=== PATIENT | female | born 1950 | race Caucasian/White ===

== ENCOUNTER 2018-02-27 14:25 | Outpatient (CLI) | payer MEDICARE, BC | END 2018-02-27 14:26 | disposition home or self-care (01) | LOC: BICMAMMO 14:25 | PROVIDERS: ATTEND Internal Medicine | DX: Z12.31 Encounter for screening mammogram for malignant neoplasm of breast (principal); R92.1 Mammographic calcification found on diagnostic imaging of breast | CPT/HCPCS: 77063; 77067 ==

== ENCOUNTER 2019-03-04 08:31 | Outpatient (CLI) | payer MEDICARE, BC ==
--- NOTE | 2019-03-04 09:11 | MMO ---
Bilateral MAMMO Bilat Screen [facility]. CLINICAL HISTORY: Patient is 69 years old and is seen for screening. The patient has no family history of breast cancer. The patient has no personal history of cancer. VIEWS: The views performed were: bilateral craniocaudal with tomosynthesis and bilateral mediolateral oblique with tomosynthesis. FILMS COMPARED: The present examination has been compared to prior imaging studies performed at [facility] on 02/10/2016, 02/15/2017 and 02/27/2018, and at [facility] on 09/10/2014. MAMMOGRAM FINDINGS: The breasts are extremely dense, which may lower the sensitivity of mammography. There are stable benign appearing calcifications seen in both breasts. There are no suspicious masses, suspicious calcifications, or new areas of architectural distortion. IMPRESSION: THERE IS NO MAMMOGRAPHIC EVIDENCE OF MALIGNANCY. A ROUTINE FOLLOW-UP MAMMOGRAM IN 1 YEAR IS RECOMMENDED. THE RESULTS OF THIS EXAM WERE SENT TO THE PATIENT. ACR BI-RADS Category 2 - Benign finding MAMMOGRAPHY NOTE: 1. A negative mammogram report should not delay a biopsy if a dominant of clinically suspicious mass is present. 2. Approximately 10% to 15% of breast cancers are not detected by mammography. 3. Adenosis and dense breasts may obscure an underlying neoplasm. Reported by: SERGIO LEON MD Electonically Signed: [id number]
--- NOTE | 2019-03-04 09:24 | BD ---
DEXA BONE DENSITOMETRY: (Dual energy x-ray absorptiometry) DATE: 03/04/2019 HISTORY: 69-year old white female for age-related, post-menopausal, osteoporosis screening. weight: 112 lbs height: 64 in. age of menopause: 57 COMPARISON: None available. FINDINGS: The bone mineral density (BMD) is given in grams per square centimeter (g/cm2): LUMBAR SPINE: BMD (g/cm^2) T score Z score L1: 0.859 -1.2 0.6 L2: 0.935 -0.8 1.2 L3: 0.964 -1.1 1.0 L4: 0.915 -1.3 0.8 Total: 0.920 -1.2 0.9 HIP: BMD (g/cm^2) T score Z score Femoral neck: 0.549 -2.7 -1.0 Total: 0.739 -1.7 -0.2 IMPRESSION: 1.) The mean bone mineral density of the lumbar spine is osteopenic. Fracture risk is increased. 2) The bone mineral density of the femoral neck is osteoporotic. Fracture risk is high.
== END 2019-03-04 08:32 | disposition home or self-care (01) ==
LOC: BICMAMMO 08:31
PROVIDERS: ATTEND Internal Medicine
DX: Z12.31 Encounter for screening mammogram for malignant neoplasm of breast (principal); M81.0 Age-related osteoporosis without current pathological fracture; M85.88 Other specified disorders of bone density and structure, other site
CPT/HCPCS: 77063; 77067; 77080

== ENCOUNTER 2019-05-20 10:09 | Outpatient (CLI) | payer MEDICARE, BC ==
--- NOTE | 2019-05-20 11:50 | RAD ---
THORACIC SPINE TWO VIEWS: HISTORY: Osteoporosis. FINDINGS: The thoracic vertebrae maintain normal height and alignment. There are mild degenerative changes note d with mild spurring and mild loss of disk space. No lytic or blastic process. IMPRESSION: Unremarkable thoracic spine. Very mild degenerative change noted. POS: [facility]
== END 2019-05-20 10:10 | disposition home or self-care (01) ==
LOC: BICRAD 10:09
PROVIDERS: ATTEND Internal Medicine Rheumatology
DX: M81.0 Age-related osteoporosis without current pathological fracture (principal); M47.814 Spondylosis without myelopathy or radiculopathy, thoracic region
CPT/HCPCS: 72070

== ENCOUNTER 2020-03-07 09:27 | Outpatient (CLI) | payer MEDICARE ==
--- NOTE | 2020-03-07 10:19 | MMO ---
Bilateral MAMMO Bilat Screen [facility]. CLINICAL HISTORY: Patient is 70 years old and is seen for screening. The patient has no family history of breast cancer. The patient has no personal history of cancer. VIEWS: The views performed were: bilateral craniocaudal with tomosynthesis and bilateral mediolateral oblique with tomosynthesis. FILMS COMPARED: The present examination has been compared to prior imaging studies performed at [facility] on 02/10/2016, 02/15/2017, 02/27/2018 and 03/04/2019. This study has been interpreted with the assistance of computer-aided detection. MAMMOGRAM FINDINGS: The breasts are extremely dense, which may lower the sensitivity of mammography. There are stable benign appearing calcifications seen in both breasts. There are no suspicious masses, suspicious calcifications, or new areas of architectural distortion. IMPRESSION: THERE IS NO MAMMOGRAPHIC EVIDENCE OF MALIGNANCY. A ROUTINE FOLLOW-UP MAMMOGRAM IN 1 YEAR IS RECOMMENDED. THE RESULTS OF THIS EXAM WERE SENT TO THE PATIENT. ACR BI-RADS Category 2 - Benign finding MAMMOGRAPHY NOTE: 1. A negative mammogram report should not delay a biopsy if a dominant of clinically suspicious mass is present. 2. Approximately 10% to 15% of breast cancers are not detected by mammography. 3. Adenosis and dense breasts may obscure an underlying neoplasm. Reported by: HUMBERTO JEFFERSON MD Electonically Signed: [id number]
== END 2020-03-07 09:28 | disposition home or self-care (01) ==
LOC: BICMAMMO 09:27
PROVIDERS: ATTEND Internal Medicine
DX: Z12.31 Encounter for screening mammogram for malignant neoplasm of breast (principal)
CPT/HCPCS: 77063; 77067

== ENCOUNTER 2020-10-03 08:40 | Outpatient (CLI) | payer MEDICARE, BC ==
--- NOTE | 2020-10-03 09:18 | BD ---
DEXA bone density study: HISTORY: Menopausal screening age-related osteoporosis FINDINGS: Bone mineral density (BMD) is given in grams per square centimeter (g/cm2): LUMBAR SPINE: BMD (grams/CM 2) T-score L1: 0.799 -1.7 L2: 0.836 -1.7 L3: 0.840 -2.2 L4: 0.828 -2.1 Total: 0.827 - 2.0 Osteopenia with increased risk for fracture. Bone mineral density has decreased 10.1% from prior exam, 03/04/2019 RightHIP: Femoral neck: 0.591 -2.3 Total: 0.719 -1.8 Evidence for osteopenia with increased risk for fracture. Bone mineral density has decreased 9.8% from prior exam. Left hip: Femoral neck:---Mean BMD---0.595 g/cc----T score -2.3 Total:------Mean BMD 0.713 g/cc------T score: -1.9 Evidence for osteopenia with increased risk for fracture. Bone mineral density has decreased 3.5% from prior exam, 03/04/2019 FRAX score: 10 year fracture risk Major osteoporotic fracture: 11% Hip fracture: 2.7%
== END 2020-10-03 08:41 | disposition home or self-care (01) ==
LOC: BICMAMMO 08:40
PROVIDERS: ATTEND Internal Medicine Rheumatology
DX: M81.0 Age-related osteoporosis without current pathological fracture (principal); M85.89 Other specified disorders of bone density and structure, multiple sites
CPT/HCPCS: 77080

== ENCOUNTER 2021-03-09 08:21 | Outpatient (CLI) | payer BC, MEDICARE | END 2021-03-09 08:22 | disposition home or self-care (01) | LOC: BICMAMMO 08:21 | PROVIDERS: ATTEND Internal Medicine | DX: Z12.31 Encounter for screening mammogram for malignant neoplasm of breast (principal) | CPT/HCPCS: 77063; 77067 ==

== ENCOUNTER 2022-03-12 08:27 | Outpatient (CLI) | payer MEDICARE | END 2022-03-12 08:28 | disposition home or self-care (01) | LOC: BICMAMMO 08:27 | PROVIDERS: ATTEND Internal Medicine | DX: Z12.31 Encounter for screening mammogram for malignant neoplasm of breast (principal) | CPT/HCPCS: 77063; 77067 ==

== ENCOUNTER 2022-09-28 13:15 | Emergency (ER) | payer MEDICARE ==
[2022-09-28 14:15] LABS: SARS-CoV-2 NAA Rapid Test DETECTED (NotDetected)
== END 2022-09-28 16:22 | disposition home or self-care (01) ==
LOC: ERS 13:15
DX: U07.1 COVID-19 (principal)
CPT/HCPCS: 99284

== ENCOUNTER 2023-03-28 08:19 | Outpatient (CLI) | payer MEDICARE | END 2023-03-28 08:20 | disposition home or self-care (01) | LOC: BICMAMMO 08:19 | PROVIDERS: ATTEND Internal Medicine | DX: Z12.31 Encounter for screening mammogram for malignant neoplasm of breast (principal) | CPT/HCPCS: 77063; 77067 ==

== ENCOUNTER 2025-03-31 07:48 | Outpatient (CLI) | payer MEDICARE | END 2025-03-31 07:49 | disposition home or self-care (01) | LOC: BICMAMMO 07:48 | PROVIDERS: ATTEND Internal Medicine Rheumatology | DX: Z12.31 Encounter for screening mammogram for malignant neoplasm of breast (principal); M81.0 Age-related osteoporosis without current pathological fracture; M85.89 Other specified disorders of bone density and structure, multiple sites | CPT/HCPCS: 77063; 77067; 77080 ==